=== PATIENT | male | born 2000 | race Two or more races ===

== ENCOUNTER → 2025-04-10 | Outpatient (CLI) | payer MEDICAID, SELFPAY ==
--- NOTE | 2025-04-10 13:00 | XR_ITS ---
Examination: Abdomen sonogram, complete Date and time of exam: April 10, 2025 1351 hours INDICATIONS: Palpable lump in the left upper abdomen with tenderness noticed beginning 6 weeks ago TECHNIQUE: Grayscale transabdominal sonographic images abdomen FINDINGS: Normal gallbladder Normal common bile duct 0.2 cm Pancreatic head 2.7 cm Aorta not enlarged Liver 16.2 cm fatty infiltration Normal hepatopedal portal venous flow Patent IVC Right kidney 10.3 cm cortex 1.5 cm Left kidney 10.3 cm cortex 1.6 cm Mild renal parenchymal scar formation Spleen 8.2 cm. Impression: Normal gallbladder Normal common bile duct Mild hepatomegaly fatty infiltration involving the liver
== END | disposition home or self-care (01) ==
LOC: CDIM 13:31
PROVIDERS: PCP Physician Assistant; Referring Provider Physician Assistant; Visit Provider Physician Assistant
DX: K76.0 Fatty (change of) liver, not elsewhere classified (principal)
CPT/HCPCS: 76700